=== PATIENT | female | born 1945 | race Caucasian/White ===

== ENCOUNTER 2018-12-25 10:46 | Day surgery (SDC) | payer MEDICARE ==
[~2018-12-25] VITALS: Ht 157.5 cm; Wt 52.6 kg
[~2018-12-25 10:46] MED LIST: ASPI81TA85 PO; K-TA10TA2 PO; NS 1,000 ML IV ONE; RANI1TAB6 PO; TUMS500C PO; VITA100066 PO; VITATAB11 PO
[2018-12-25] MEDS ORDERED: LIDOCAINE 2% INJ 100 MG/5 ML SDV (FOR ANES.) As Ordered ONE (11:37)
[2018-12-25] MEDS ORDERED: PROPOFOL 200 MG/20 ML VIAL As Ordered ONE ×2 (11:37→13:18)
--- NOTE | 2018-12-25 13:05 | ROOR ---
Patient Name: Vivian Skinner Procedure Date: 12/25/2018 12:39 PM Date of : 1945 Age: 73 Room: [facility] Gender: Female Note Status: Finalized Procedure: Upper Endoscopy + Biopsies Indications: Crohn's disease, Diarrhea, Weight loss Providers: Lex Betts MD Referring MD: AVTAR KUO MD Requesting Provider: Medicines: Monitored Anesthesia Care Complications: No immediate complications. Procedure: Pre-Anesthesia Assessment: - The heart rate, respiratory rate, oxygen saturations, blood pressure, adequacy of pulmonary ventilation, and response to care were monitored throughout the procedure. The Endoscope was introduced through the mouth, and advanced to the second part of duodenum. The upper GI endoscopy was accomplished without difficulty. The patient tolerated the procedure well. Findings: The Z-line was regular and was found 40 cm from the incisors. Multiple biopsies were obtained with cold forceps for evaluation to rule out Bhakta's Esophagus randomly at the gastroesophageal junction. A medium-sized hiatal hernia was present. Diffuse moderate inflammation characterized by congestion (edema), erosions, erythema and friability was found in the stomach. Biopsies were taken with a cold forceps for Helicobacter pylori testing. Localized mildly erythematous mucosa without bleeding was found at the incisura. Biopsies were taken with a cold forceps for histology. Multiple diffuse erosions without bleeding were found in the first portion of the duodenum. Biopsies for histology were taken with a cold forceps for evaluation of celiac disease. The exam was otherwise without abnormality. Impression: - Z-line regular, 40 cm from the incisors. - Medium-sized hiatal hernia. - Mucosal changes suspicious for gastritis. Biopsied. - Erythematous mucosa in the incisura. Biopsied. - Duodenal erosions without bleeding. Biopsied. - The examination was otherwise normal. - Multiple biopsies were obtained at the gastroesophageal junction. - The examination was otherwise normal. Recommendation: - Patient has a contact number available for emergencies. The signs and symptoms of potential delayed complications were discussed with the patient. Return to normal activities tomorrow. Written discharge instructions were provided to the patient. - High fiber diet. - Discharge patient to home. - Continue present medications. - Await pathology results. - Telephone GI clinic for pathology results in 1 week. - Check Portal Online for Path Results.([email or web address]) - The findings and recommendations were discussed with the patient's family. Lex Betts MD Lex Betts MD 12/25/2018 1:04:34 PM This report has been signed electronically. Number of Addenda: 0 Note Initiated On: 12/25/2018 12:39 PM Estimated Blood Loss: Estimated blood loss: none.
--- NOTE | 2018-12-25 13:34 | ROOR ---
Patient Name: Vivian Skinner Procedure Date: 12/25/2018 12:40 PM Date of : 1945 Age: 73 Room: [facility] Gender: Female Note Status: Finalized Procedure: Colonoscopy to Stenosis + Cold Snare Polypectomy + Hemoclips Indications: Follow-up of Crohn's disease of the colon, Disease activity assessment of Crohn's disease of the colon, Chronic diarrhea, Weight loss Providers: Lex Betts MD Referring MD: AVTAR KUO MD Requesting Provider: Medicines: Monitored Anesthesia Care Complications: No immediate complications. Procedure: Pre-Anesthesia Assessment: - The heart rate, respiratory rate, oxygen saturations, blood pressure, adequacy of pulmonary ventilation, and response to care were monitored throughout the procedure. The Colonoscope was introduced through the anus with the intention of advancing to the cecum. The scope was advanced to the hepatic flexure before the procedure was aborted. Medications were given. The colonoscopy was performed without difficulty. The patient tolerated the procedure well. The quality of the bowel preparation was good. Findings: The perianal and digital rectal examinations were normal. Non-bleeding internal hemorrhoids were found during retroflexion. The hemorrhoids were small and Grade I (internal hemorrhoids that do not prolapse). A large polyp was found at 50 cm proximal to the anus. The polyp was sessile. The polyp was removed with a cold snare. Resection and retrieval were complete. To prevent bleeding after the polypectomy, three hemostatic clips were successfully placed (MR conditional). There was no bleeding at the end of the procedure. A benign-appearing, intrinsic severe stenosis was found at the hepatic flexure and was non-traversed. Biopsies were taken with a cold forceps for histology. The exam was otherwise without abnormality. Impression: - Non-bleeding internal hemorrhoids. - One large polyp at 50 cm proximal to the anus, removed with a cold snare. Resected and retrieved. Clips (MR conditional) were placed. - Stricture at the hepatic flexure. Biopsied. - The examination was otherwise normal. Recommendation: - Patient has a contact number available for emergencies. The signs and symptoms of potential delayed complications were discussed with the patient. Return to normal activities tomorrow. Written discharge instructions were provided to the patient. - Discharge patient to home. - Continue present medications. - Await pathology results. - Telephone GI clinic for pathology results in 1 week. - Return to GI office in 1 month. - The findings and recommendations were discussed with the patient's family. Lex Betts MD Lex Betts MD 12/25/2018 1:34:06 PM This report has been signed electronically. Number of Addenda: 0 Note Initiated On: 12/25/2018 12:40 PM Estimated Blood Loss: Estimated blood loss: none.
[2018-12-25 13:50] VITALS: BP 92/55
== END 2018-12-25 13:39 | disposition home or self-care (01) ==
LOC: M OPP 10:46
PROVIDERS: ATTEND Internal Medicine Gastroenterology
DX: K64.0 First degree hemorrhoids (principal); K50.112 Crohn's disease of large intestine with intestinal obstruction; D12.6 Benign neoplasm of colon, unspecified; K52.9 Noninfective gastroenteritis and colitis, unspecified; R63.4 Abnormal weight loss; K44.9 Diaphragmatic hernia without obstruction or gangrene; K31.89 Other diseases of stomach and duodenum; K26.9 Duodenal ulcer, unspecified as acute or chronic, without hemorrhage or perforation; K50.90 Crohn's disease, unspecified, without complications; Z79.82 Long term (current) use of aspirin; Z88.5 Allergy status to narcotic agent; Z88.8 Allergy status to other drugs, medicaments and biological substances; F17.210 Nicotine dependence, cigarettes, uncomplicated

== ENCOUNTER 2019-02-19 12:52 | Outpatient (CLI) | payer MEDICARE ==
[~2019-02-19] VITALS: Ht 157.5 cm; Wt 52.0 kg
[~2019-02-19 12:52] MED LIST changes: -NS 1,000 ML IV ONE
[2019-02-19 13:00] VITALS: BP 106/50
[2019-02-19] MEDS ORDERED: ACETAMINOPHEN TAB 650MG DOSE (2X325MG) PO ONE (13:30)
[2019-02-19] MEDS ORDERED: VEDOLIZUMAB 300 MG in NS 250 ML IV ONE (13:30)
[2019-02-19] MEDS ORDERED: diphenhydrAMINE 25 MG CAP PO ONE (13:30)
[2019-02-19 14:00] VITALS: BP 93/52
[2019-02-19 14:32] VITALS: BP 93/57
== END 2019-02-19 14:30 | disposition home or self-care (01) ==
LOC: M INFU 12:52
PROVIDERS: ATTEND Internal Medicine Gastroenterology
DX: K50.90 Crohn's disease, unspecified, without complications (principal); Z88.5 Allergy status to narcotic agent

== ENCOUNTER 2019-03-05 13:35 | Outpatient (CLI) | payer MEDICARE ==
[~2019-03-05] VITALS: Ht 162.6 cm; Wt 52.0 kg
[2019-03-05 13:45] VITALS: BP 95/54
[2019-03-05] MEDS ORDERED: ACETAMINOPHEN TAB 650MG DOSE (2X325MG) PO ONE (13:45)
[2019-03-05] MEDS ORDERED: diphenhydrAMINE 25 MG CAP PO ONE (13:45)
[2019-03-05] MEDS ORDERED: VEDOLIZUMAB 300 MG in NS 250 ML IV ONE (13:45)
[2019-03-05 14:45] VITALS: BP 92/55
== END 2019-03-05 15:00 | disposition home or self-care (01) ==
LOC: M INFU 13:35
PROVIDERS: ATTEND Internal Medicine Gastroenterology
DX: K50.00 Crohn's disease of small intestine without complications (principal)

== ENCOUNTER 2019-04-02 12:44 | Outpatient (CLI) | payer MEDICARE ==
[~2019-04-02] VITALS: Ht 162.6 cm; Wt 52.0 kg
[2019-04-02 13:00] VITALS: BP 112/51
[2019-04-02] MEDS ORDERED: VEDOLIZUMAB 300 MG in NS 250 ML IV ONE (13:00)
[2019-04-02] MEDS ORDERED: ACETAMINOPHEN TAB 650MG DOSE (2X325MG) PO ONE (13:00)
[2019-04-02] MEDS ORDERED: diphenhydrAMINE 25 MG CAP PO ONE (13:00)
[2019-04-02 14:16] VITALS: BP 94/56
== END 2019-04-02 14:10 | disposition home or self-care (01) ==
LOC: M INFU 12:44
PROVIDERS: ATTEND Internal Medicine Gastroenterology
DX: K50.90 Crohn's disease, unspecified, without complications (principal); Z79.899 Other long term (current) drug therapy; Z88.5 Allergy status to narcotic agent

== ENCOUNTER → 2019-05-06 | Outpatient (CLI) | payer MEDICARE ==
[~2019-05-06] MED LIST changes: +E-Z-GAS II EFFERVESCENT PACKET (SODIUM BICARB./CITRIC ACID/SIMETHICONE) As Ordered ONE; +E-Z-HD 98% w/w 340GM SUSP BTL As Ordered ONE; +E-Z-PAQUE 96% w/w SUSP 176GM BTL As Ordered ONE
--- NOTE | 2019-05-07 13:22 | REP ---
UPPER GI AIR CONTRAST AND SMALL BOWEL FOLLOW THROUGH The procedure was performed under the direct supervision of Dr. Levi. The images were reviewed with Dr. Levi The lens finisher film shows no organomegaly or pathological masses. The intestinal gas pattern is non-specific. Is a single surgical clip noted in the right upper quadrant. Liquid barium and gas producing crystals were given in the erect position as well as liquid barium in the prone oblique position in order to perform a double contrast upper GI examination. Additionally liquid barium was given at the end of the examination in order to perform a small bowel follow through. The oral and pharyngeal stages of deglutition are unremarkable. Esophageal transport is prompt and efficient and there is no esophagitis, stricture, mucosal ring or hiatal hernia. Gastroesophageal reflux is not demonstrated on this examination. Within the stomach there are prominent rugal folds which likely represents gastritis. There is no trista ulcer identified. The duodenal brady are normally outlined . The mucosal folds are smooth and regular. There is no duodenitis pancreatitis peptic ulcer disease or neoplasm. The visualized portion of the proximal small bowel appears normal in course and caliber. The barium column was followed through the small bowel to the level of the terminal ileum. Small bowel transit time is approximately 15 minutes . During fluoroscopy gentle palpation shows all loops are freely movable and pliable. There are no fixed or angulated loops. The small bowel mucosal pattern is normal in course and caliber. There is no transition to suggest a partial small-bowel obstruction. The patient is status post ileocolic anastomoses. There is no evidence of stricture or obstruction at the anastomosis. Impression: There are prominent folds in the stomach which likely represent gastritis. There is no trista ulcer identified. Postsurgical changes consistent with the patient's history of bowel resection. 2 minutes of fluoro time was utilized for this procedure. Reviewed by VIVIANE Wilson 05/06/2019 05:42 P Electronically Signed by Urbano Levi MD 05/07/2019 01:13 P
== END ==
LOC: M RAD 09:52
PROVIDERS: ATTEND Internal Medicine Gastroenterology
DX: K50.80 Crohn's disease of both small and large intestine without complications (principal); Z87.19 Personal history of other diseases of the digestive system

== ENCOUNTER 2019-05-28 13:11 | Outpatient (CLI) | payer MEDICARE, OTHER ==
[~2019-05-28] VITALS: Ht 162.6 cm; Wt 52.0 kg
[~2019-05-28 13:11] MED LIST changes: -E-Z-GAS II EFFERVESCENT PACKET (SODIUM BICARB./CITRIC ACID/SIMETHICONE) As Ordered ONE; -E-Z-HD 98% w/w 340GM SUSP BTL As Ordered ONE; -E-Z-PAQUE 96% w/w SUSP 176GM BTL As Ordered ONE
[2019-05-28 13:15] VITALS: BP 127/94
[2019-05-28] MEDS ORDERED: OMEP40CA2 PO (13:36)
[2019-05-28] MEDS ORDERED: LOPE1CAP5 PO (13:39)
[2019-05-28] MEDS ORDERED: ACETAMINOPHEN TAB 650MG DOSE (2X325MG) PO ONE (14:00)
[2019-05-28] MEDS ORDERED: VEDOLIZUMAB 300 MG in NS 250 ML IV ONE (14:00)
[2019-05-28] MEDS ORDERED: diphenhydrAMINE 25 MG CAP PO ONE (14:00)
[2019-05-28 14:30] VITALS: BP 132/63
== END 2019-05-28 14:30 | disposition home or self-care (01) ==
LOC: M INFU 13:11
PROVIDERS: ATTEND Internal Medicine Gastroenterology
DX: K50.90 Crohn's disease, unspecified, without complications (principal)

== ENCOUNTER → 2019-07-23 | Outpatient (CLI) | payer MEDICARE ==
[~2019-07-23] VITALS: Ht 162.6 cm; Wt 52.0 kg
[~2019-07-23] MED LIST changes: +ACETAMINOPHEN TAB 650MG DOSE (2X325MG) PO ONE; +ENTY1INJ IV; +LOPE1CAP5 PO; +OMEP40CA2 PO; +RANI-356 PO; -RANI1TAB6 PO; +VEDOLIZUMAB 300 MG in NS 250 ML IV ONE; +diphenhydrAMINE 25 MG CAP PO ONE
[2019-07-23 12:45] VITALS: BP 110/57
== END ==
LOC: M INFU 12:37
PROVIDERS: ATTEND Internal Medicine Gastroenterology
DX: K50.90 Crohn's disease, unspecified, without complications (principal); Z53.9 Procedure and treatment not carried out, unspecified reason

== ENCOUNTER 2019-07-29 11:11 | Outpatient (CLI) | payer MEDICARE ==
[~2019-07-29] VITALS: Ht 162.6 cm; Wt 52.0 kg
[~2019-07-29 11:11] MED LIST changes: -ACETAMINOPHEN TAB 650MG DOSE (2X325MG) PO ONE; -OMEP40CA2 PO; +OMEP40CA97 PO; -VEDOLIZUMAB 300 MG in NS 250 ML IV ONE; -diphenhydrAMINE 25 MG CAP PO ONE
[2019-07-29 11:20] VITALS: BP 121/56
[2019-07-29] MEDS ORDERED: diphenhydrAMINE 25 MG CAP PO ONE (11:30)
[2019-07-29] MEDS ORDERED: ACETAMINOPHEN TAB 650MG DOSE (2X325MG) PO ONE (11:30)
[2019-07-29] MEDS ORDERED: VEDOLIZUMAB 300 MG in NS 250 ML IV ONE (12:00)
[2019-07-29 12:20] VITALS: BP 116/57
== END 2019-07-29 12:20 | disposition home or self-care (01) ==
LOC: M INFU 11:11
PROVIDERS: ATTEND Internal Medicine Gastroenterology
DX: K50.90 Crohn's disease, unspecified, without complications (principal); Z88.5 Allergy status to narcotic agent

== ENCOUNTER 2019-09-23 13:49 | Outpatient (CLI) | payer MEDICARE ==
[~2019-09-23] VITALS: Ht 162.6 cm; Wt 52.0 kg
[~2019-09-23 13:49] MED LIST changes: -RANI-356 PO; +RANI-397 PO
[2019-09-23 14:00] VITALS: BP 108/54
[2019-09-23] MEDS ORDERED: ACETAMINOPHEN TAB 650MG DOSE (2X325MG) PO ONE (15:00)
[2019-09-23] MEDS ORDERED: VEDOLIZUMAB 300 MG in NS 250 ML IV ONE (15:00)
[2019-09-23] MEDS ORDERED: diphenhydrAMINE 25 MG CAP PO ONE (15:00)
[2019-09-23 15:30] VITALS: BP 100/53
== END 2019-09-23 15:30 | disposition home or self-care (01) ==
LOC: M INFU 13:49
PROVIDERS: ATTEND Internal Medicine Gastroenterology
DX: K50.90 Crohn's disease, unspecified, without complications (principal); Z88.1 Allergy status to other antibiotic agents; Z88.5 Allergy status to narcotic agent; Z88.6 Allergy status to analgesic agent

== ENCOUNTER 2019-11-12 09:13 | Outpatient (CLI) | payer MEDICARE ==
[~2019-11-12] VITALS: Ht 162.6 cm; Wt 52.0 kg
[2019-11-12 09:32] VITALS: BP 115/54
[2019-11-12] MEDS ORDERED: diphenhydrAMINE 25 MG CAP PO ONE (10:00)
[2019-11-12] MEDS ORDERED: ACETAMINOPHEN TAB 650MG DOSE (2X325MG) PO ONE (10:00)
[2019-11-12 10:27] VITALS: BP 103/52
[2019-11-12] MEDS ORDERED: VEDOLIZUMAB 300 MG in NS 250 ML IV ONE (10:30)
== END 2019-11-12 10:30 | disposition home or self-care (01) ==
LOC: M INFU 09:13
PROVIDERS: ATTEND Internal Medicine Gastroenterology
DX: K50.90 Crohn's disease, unspecified, without complications (principal); Z88.1 Allergy status to other antibiotic agents; Z88.5 Allergy status to narcotic agent

== ENCOUNTER 2020-01-08 11:18 | Outpatient (CLI) | payer MEDICARE ==
[~2020-01-08] VITALS: Ht 162.6 cm; Wt 52.7 kg
[2020-01-08 11:37] VITALS: BP 117/59
[2020-01-08] MEDS ORDERED: diphenhydrAMINE 25 MG CAP PO ONE (12:00)
[2020-01-08] MEDS ORDERED: VEDOLIZUMAB 300 MG in NS 250 ML IV ONE (12:00)
[2020-01-08] MEDS ORDERED: ACETAMINOPHEN TAB 650MG DOSE (2X325MG) PO ONE (12:00)
[2020-01-08 12:45] VITALS: BP 100/51
== END 2020-01-08 12:40 | disposition home or self-care (01) ==
LOC: M INFU 11:18
PROVIDERS: ATTEND Internal Medicine Gastroenterology
DX: K50.90 Crohn's disease, unspecified, without complications (principal); Z88.1 Allergy status to other antibiotic agents; Z88.6 Allergy status to analgesic agent; Z88.8 Allergy status to other drugs, medicaments and biological substances

== ENCOUNTER → 2020-02-24 | Outpatient (CLI) | payer MEDICARE ==
[2020-02-24 12:28] LABS: BASO # 0.1 10^3/uL (0.0-0.2); BASO % 1.1 % (0.0-1.0); EOS # 0.2 10^3/uL (0.0-0.5); EOS % 2.8 % (0.0-3.0); HEMATOCRIT 41.6 % (36.0-47.0); HEMOGLOBIN 13.1 g/dl (12.0-15.5); LYMPH # 1.9 10^3/uL (1.5-5.0); LYMPH % 36.7 % (24.0-44.0); MEAN CORPUSCULAR HEMOGLOBIN 29.3 pg (27.0-33.0); MEAN CORPUSCULAR HGB CONC 31.5 g/dl (32.0-36.5); MEAN CORPUSCULAR VOLUME 93.1 fl (80.0-96.0); MONO # 0.5 10^3/uL (0.0-0.8); MONO % 9.3 % (0.0-5.0); NEUTROPHILS # 2.6 10^3/uL (1.5-8.5); NEUTROPHILS % 49.9 % (36.0-66.0); PLATELET COUNT, AUTOMATED 254 10^3/uL (150-450); RED BLOOD COUNT 4.47 10^6/uL (4.00-5.40); WHITE BLOOD COUNT 5.3 10^3/uL (4.0-10.0)
[2020-02-24 12:58] LABS: ALBUMIN 3.6 GM/DL (3.2-5.2); ALT/SGPT 23 U/L (12-78); BILIRUBIN,TOTAL 0.7 MG/DL (0.2-1.0); BLOOD UREA NITROGEN 9 MG/DL (7-18); C REACTIVE PROTEIN QUANTITATIV < 0.30 MG/DL (0.00-0.30); CALCIUM LEVEL 8.9 MG/DL (8.8-10.2); CARBON DIOXIDE LEVEL 30 MEQ/L (21-32); CHLORIDE LEVEL 104 MEQ/L (98-107); CREATININE FOR GFR 0.91 MG/DL (0.55-1.30); GLOMERULAR FILTRATION RATE > 60.0 (>39); GLUCOSE, FASTING 84 MG/DL (70-100); POTASSIUM SERUM 3.9 MEQ/L (3.5-5.1); SODIUM LEVEL 141 MEQ/L (136-145); TOTAL PROTEIN 7.2 GM/DL (6.4-8.2)
== END ==
LOC: M LAB 11:35
PROVIDERS: ATTEND Internal Medicine Gastroenterology
DX: K50.80 Crohn's disease of both small and large intestine without complications (principal)

== ENCOUNTER 2020-03-03 09:18 | Outpatient (CLI) | payer MEDICARE ==
[~2020-03-03] VITALS: Ht 162.6 cm; Wt 52.0 kg
[2020-03-03 09:30] VITALS: BP 119/53
[2020-03-03] MEDS ORDERED: VEDOLIZUMAB 300 MG in NS 250 ML IV ONE (09:30)
[2020-03-03] MEDS ORDERED: ACETAMINOPHEN TAB 650MG DOSE (2X325MG) PO ONE (09:30)
[2020-03-03] MEDS ORDERED: diphenhydrAMINE 25MG CAP PO ONE (09:30)
[2020-03-03 09:35] VITALS: BP 128/60
== END 2020-03-03 10:30 | disposition home or self-care (01) ==
LOC: M INFU 09:18
PROVIDERS: ATTEND Internal Medicine Gastroenterology
DX: K50.90 Crohn's disease, unspecified, without complications (principal); Z88.1 Allergy status to other antibiotic agents; Z88.8 Allergy status to other drugs, medicaments and biological substances

== ENCOUNTER 2020-04-28 09:21 | Outpatient (CLI) | payer MEDICARE ==
[~2020-04-28] VITALS: Ht 162.6 cm; Wt 52.7 kg
[~2020-04-28 09:21] MED LIST changes: -ASPI81TA85 PO; +ASPI81TA86 PO
[2020-04-28] MEDS ORDERED: diphenhydrAMINE 25MG CAP PO ONE (09:30)
[2020-04-28] MEDS ORDERED: ACETAMINOPHEN TAB 650MG DOSE (2X325MG) PO ONE (09:30)
[2020-04-28] MEDS ORDERED: VEDOLIZUMAB 300 MG in NS 250 ML IV ONE (09:30)
[2020-04-28 09:47] VITALS: BP 134/63
[2020-04-28 10:50] VITALS: BP 121/59
== END 2020-04-28 10:50 | disposition home or self-care (01) ==
LOC: M INFU 09:21
PROVIDERS: ATTEND Internal Medicine Gastroenterology
DX: K50.90 Crohn's disease, unspecified, without complications (principal)

== ENCOUNTER 2020-06-23 09:14 | Outpatient (CLI) | payer MEDICARE ==
[~2020-06-23] VITALS: Ht 162.6 cm; Wt 52.0 kg
[2020-06-23 09:23] VITALS: BP 138/63
[2020-06-23] MEDS ORDERED: diphenhydrAMINE 25MG CAP PO ONE (09:30)
[2020-06-23] MEDS ORDERED: ACETAMINOPHEN TAB 650MG DOSE (2X325MG) PO ONE (09:30)
[2020-06-23] MEDS ORDERED: VEDOLIZUMAB 300 MG in NS 250 ML IV ONE (09:30)
[2020-06-23 09:43] VITALS: BP 138/63
[2020-06-23 10:21] VITALS: BP 116/62
== END 2020-06-23 10:20 | disposition home or self-care (01) ==
LOC: M INFU 09:14
PROVIDERS: ATTEND Internal Medicine Gastroenterology
DX: K50.90 Crohn's disease, unspecified, without complications (principal)

== ENCOUNTER 2020-08-18 09:13 | Outpatient (CLI) | payer MEDICARE ==
[~2020-08-18] VITALS: Ht 162.6 cm; Wt 52.0 kg
[2020-08-18 09:26] VITALS: BP 125/64
[2020-08-18] MEDS ORDERED: diphenhydrAMINE 25MG CAP PO ONE (09:30)
[2020-08-18] MEDS ORDERED: ACETAMINOPHEN TAB 650MG DOSE (2X325MG) PO ONE (09:30)
[2020-08-18] MEDS ORDERED: VEDOLIZUMAB 300 MG in NS 250 ML IV ONE (09:30)
[2020-08-18 09:33] VITALS: BP 125/64
[2020-08-18 10:58] VITALS: BP 122/60
== END 2020-08-18 11:00 | disposition home or self-care (01) ==
LOC: M INFU 09:13
PROVIDERS: ATTEND Internal Medicine Gastroenterology
DX: K50.90 Crohn's disease, unspecified, without complications (principal); Z88.1 Allergy status to other antibiotic agents; Z88.8 Allergy status to other drugs, medicaments and biological substances

== ENCOUNTER 2020-10-13 09:08 | Outpatient (CLI) | payer MEDICARE ==
[~2020-10-13] VITALS: Ht 162.6 cm; Wt 52.0 kg
[2020-10-13] MEDS ORDERED: VEDOLIZUMAB 300 MG in NS 250 ML IV ONE ×6 (09:30)
[2020-10-13] MEDS ORDERED: ACETAMINOPHEN TAB 650MG DOSE (2X325MG) PO ONE (09:30)
[2020-10-13] MEDS ORDERED: diphenhydrAMINE 25MG CAP PO ONE (09:30)
[2020-10-13 09:45] VITALS: BP 113/56
[2020-10-13 09:46] VITALS: BP 113/56
[2020-10-13 10:20] VITALS: BP 107/56
== END 2020-10-13 10:20 | disposition home or self-care (01) ==
LOC: M INFU 09:08
PROVIDERS: ATTEND Internal Medicine Gastroenterology
DX: K51.90 Ulcerative colitis, unspecified, without complications (principal); Z88.1 Allergy status to other antibiotic agents; Z88.8 Allergy status to other drugs, medicaments and biological substances

== ENCOUNTER 2020-12-21 11:59 | Outpatient (CLI) | payer MEDICARE ==
[2020-12-21 12:00] VITALS: BP 116/56
[2020-12-21] MEDS ORDERED: VEDOLIZUMAB 300 MG in NS 250 ML IV ONE (12:00)
[2020-12-21] MEDS ORDERED: diphenhydrAMINE 25MG CAP PO ONE (12:00)
[2020-12-21] MEDS ORDERED: ACETAMINOPHEN TAB 650MG DOSE (2X325MG) PO ONE (12:00)
[2020-12-21 13:30] VITALS: BP 156/68
== END 2020-12-21 13:30 | disposition home or self-care (01) ==
LOC: M INFU 11:59
PROVIDERS: ATTEND Internal Medicine Gastroenterology
DX: K50.90 Crohn's disease, unspecified, without complications (principal); Z88.1 Allergy status to other antibiotic agents; Z88.8 Allergy status to other drugs, medicaments and biological substances

== ENCOUNTER 2021-02-15 12:01 | Outpatient (CLI) | payer MEDICARE ==
[~2021-02-15] VITALS: Ht 157.5 cm; Wt 52.0 kg
[~2021-02-15 12:01] MED LIST changes: +ACETAMINOPHEN TAB 650MG DOSE (2X325MG) PO ONE; +OMEP40CA4 PO; -OMEP40CA97 PO; +VEDOLIZUMAB 300 MG in NS 250 ML IV ONE; +diphenhydrAMINE 25MG CAP PO ONE
[2021-02-15 12:05] VITALS: BP 129/61
[2021-02-15 13:10] VITALS: BP 114/56
== END 2021-02-15 13:20 | disposition home or self-care (01) ==
LOC: M INFU 12:01
PROVIDERS: ATTEND Internal Medicine Gastroenterology
DX: K50.90 Crohn's disease, unspecified, without complications (principal); Z88.1 Allergy status to other antibiotic agents; Z88.8 Allergy status to other drugs, medicaments and biological substances

== ENCOUNTER 2021-04-13 14:01 | Outpatient (CLI) | payer MEDICARE ==
[~2021-04-13] VITALS: Ht 157.5 cm; Wt 52.6 kg
[2021-04-13 14:13] VITALS: BP 133/62
[2021-04-13 15:11] VITALS: BP 118/59
== END 2021-04-13 15:10 | disposition home or self-care (01) ==
LOC: M INFU 14:01
PROVIDERS: ATTEND Internal Medicine Gastroenterology
DX: K50.90 Crohn's disease, unspecified, without complications (principal); Z88.1 Allergy status to other antibiotic agents; Z88.8 Allergy status to other drugs, medicaments and biological substances

== ENCOUNTER 2021-06-15 15:02 | Outpatient (CLI) | payer MEDICARE ==
[~2021-06-15] VITALS: Ht 157.5 cm; Wt 57.2 kg
[2021-06-15 15:10] VITALS: BP 142/68
[2021-06-15 16:34] VITALS: BP 111/60
== END 2021-06-15 16:35 | disposition home or self-care (01) ==
LOC: M INFU 15:02
PROVIDERS: ATTEND Internal Medicine Gastroenterology
DX: K50.90 Crohn's disease, unspecified, without complications (principal); Z88.1 Allergy status to other antibiotic agents; Z88.8 Allergy status to other drugs, medicaments and biological substances

== ENCOUNTER 2021-08-03 14:00 | Outpatient (CLI) | payer MEDICARE ==
[~2021-08-03] VITALS: Ht 160 cm; Wt 52.0 kg
[2021-08-03 14:29] VITALS: BP 128/58
[2021-08-03 15:35] VITALS: BP 129/61
== END 2021-08-03 15:30 | disposition home or self-care (01) ==
LOC: M INFU 14:00
PROVIDERS: ATTEND Internal Medicine Gastroenterology
DX: K50.90 Crohn's disease, unspecified, without complications (principal); Z88.1 Allergy status to other antibiotic agents; Z88.8 Allergy status to other drugs, medicaments and biological substances

== ENCOUNTER 2021-09-28 14:06 | Outpatient (CLI) | payer MEDICARE ==
[~2021-09-28] VITALS: Ht 167.6 cm; Wt 52.6 kg
[2021-09-28 14:22] VITALS: BP 130/81
[2021-09-28 15:31] VITALS: BP 115/58
== END 2021-09-28 15:35 | disposition home or self-care (01) ==
LOC: M INFU 14:06
PROVIDERS: ATTEND Internal Medicine Gastroenterology
DX: K50.90 Crohn's disease, unspecified, without complications (principal); Z88.1 Allergy status to other antibiotic agents; Z88.8 Allergy status to other drugs, medicaments and biological substances

== ENCOUNTER 2021-11-23 13:56 | Outpatient (CLI) | payer MEDICARE ==
[~2021-11-23] VITALS: Ht 167.6 cm; Wt 52.7 kg
[~2021-11-23 13:56] MED LIST changes: -ACETAMINOPHEN TAB 650MG DOSE (2X325MG) PO ONE; -VEDOLIZUMAB 300 MG in NS 250 ML IV ONE; -diphenhydrAMINE 25MG CAP PO ONE
[2021-11-23] MEDS ORDERED: ACETAMINOPHEN TAB 650MG DOSE (2X325MG) PO ONE (14:00)
[2021-11-23] MEDS ORDERED: diphenhydrAMINE 25MG CAP PO ONE (14:00)
[2021-11-23] MEDS ORDERED: VEDOLIZUMAB 300 MG in NS 250 ML IV ONE (14:00)
[2021-11-23 14:11] VITALS: BP 109/62
[2021-11-23 14:45] VITALS: BP 112/59
== END 2021-11-23 15:00 | disposition home or self-care (01) ==
LOC: M INFU 13:56
PROVIDERS: ATTEND Internal Medicine Gastroenterology
DX: K50.90 Crohn's disease, unspecified, without complications (principal); Z88.1 Allergy status to other antibiotic agents; Z88.8 Allergy status to other drugs, medicaments and biological substances

== ENCOUNTER 2022-01-25 13:53 | Outpatient (CLI) | payer MEDICARE ==
[~2022-01-25] VITALS: Ht 170.2 cm; Wt 52.7 kg
[2022-01-25] MEDS ORDERED: VEDOLIZUMAB 300 MG in NS 250 ML IV ONE (14:00)
[2022-01-25] MEDS ORDERED: diphenhydrAMINE 25MG CAP PO ONE (14:00)
[2022-01-25] MEDS ORDERED: ACETAMINOPHEN TAB 650MG DOSE (2X325MG) PO ONE (14:00)
[2022-01-25 14:25] VITALS: BP 91/51
[2022-01-25 15:03] VITALS: BP 110/59
== END 2022-01-25 15:00 | disposition home or self-care (01) ==
LOC: M INFU 13:53
PROVIDERS: ATTEND Internal Medicine Gastroenterology
DX: K50.90 Crohn's disease, unspecified, without complications (principal); Z88.1 Allergy status to other antibiotic agents; Z88.8 Allergy status to other drugs, medicaments and biological substances

== ENCOUNTER 2022-03-22 14:36 | Outpatient (CLI) | payer MEDICARE ==
[~2022-03-22] VITALS: Ht 170.2 cm; Wt 52.0 kg
[~2022-03-22 14:36] MED LIST changes: +ACETAMINOPHEN TAB 650MG DOSE (2X325MG) PO ONE; +VEDOLIZUMAB 300 MG in NS 250 ML IV ONE; +diphenhydrAMINE 25MG CAP PO ONE
[2022-03-22 15:00] VITALS: BP 130/62
== END 2022-03-22 15:40 | disposition home or self-care (01) ==
LOC: M INFU 14:36
PROVIDERS: ATTEND Internal Medicine Gastroenterology
DX: K50.90 Crohn's disease, unspecified, without complications (principal); Z88.1 Allergy status to other antibiotic agents; Z88.8 Allergy status to other drugs, medicaments and biological substances

== ENCOUNTER 2022-05-17 14:00 | Outpatient (CLI) | payer MEDICARE ==
[2022-05-17 14:31] VITALS: BP 138/61
== END 2022-05-17 15:05 | disposition home or self-care (01) ==
LOC: M INFU 14:00
PROVIDERS: ATTEND Internal Medicine Gastroenterology
DX: K50.919 Crohn's disease, unspecified, with unspecified complications (principal); Z88.1 Allergy status to other antibiotic agents; Z88.8 Allergy status to other drugs, medicaments and biological substances

== ENCOUNTER 2022-07-12 13:45 | Outpatient (CLI) | payer MEDICARE ==
[~2022-07-12] VITALS: Ht 165.1 cm; Wt 52.0 kg
[~2022-07-12 13:45] MED LIST changes: -ACETAMINOPHEN TAB 650MG DOSE (2X325MG) PO ONE; -VEDOLIZUMAB 300 MG in NS 250 ML IV ONE; -diphenhydrAMINE 25MG CAP PO ONE
[2022-07-12] MEDS ORDERED: diphenhydrAMINE 25MG CAP PO ONE (14:00)
[2022-07-12] MEDS ORDERED: ACETAMINOPHEN TAB 650MG DOSE (2X325MG) PO ONE (14:00)
[2022-07-12] MEDS ORDERED: VEDOLIZUMAB 300 MG in NS 250 ML IV ONE (14:00)
[2022-07-12 14:18] VITALS: BP 110/58
[2022-07-12 15:15] VITALS: BP 132/68
== END 2022-07-12 15:10 | disposition home or self-care (01) ==
LOC: M INFU 13:45
PROVIDERS: ATTEND Internal Medicine Gastroenterology
DX: K50.90 Crohn's disease, unspecified, without complications (principal); Z88.1 Allergy status to other antibiotic agents; Z88.8 Allergy status to other drugs, medicaments and biological substances

== ENCOUNTER 2022-09-06 14:00 | Outpatient (CLI) | payer MEDICARE ==
[~2022-09-06] VITALS: Ht 167.6 cm; Wt 52.6 kg
[2022-09-06 14:00] VITALS: BP 135/60
[~2022-09-06 14:00] MED LIST changes: +ACETAMINOPHEN TAB 650MG DOSE (2X325MG) PO ONE; +VEDOLIZUMAB 300 MG in NS 250 ML IV ONE; +diphenhydrAMINE 25MG CAP PO ONE
[2022-09-06 15:10] VITALS: BP 101/58
== END 2022-09-06 15:10 | disposition home or self-care (01) ==
LOC: M INFU 14:00
PROVIDERS: ATTEND Internal Medicine Gastroenterology
DX: K50.90 Crohn's disease, unspecified, without complications (principal); Z88.1 Allergy status to other antibiotic agents; Z88.8 Allergy status to other drugs, medicaments and biological substances

== ENCOUNTER → 2023-05-23 | Outpatient (REF) | payer MEDICARE ==
[~2023-05-23] MED LIST changes: -ACETAMINOPHEN TAB 650MG DOSE (2X325MG) PO ONE; -K-TA10TA2 PO; +POTA-165 PO; -VEDOLIZUMAB 300 MG in NS 250 ML IV ONE; -diphenhydrAMINE 25MG CAP PO ONE
== END ==
LOC: M LAB REF 15:28
PROVIDERS: ATTEND Internal Medicine Gastroenterology
DX: K50.80 Crohn's disease of both small and large intestine without complications (principal)